=== PATIENT | female | born 1995 ===

== ENCOUNTER 2019-05-28 20:30 | Inpatient (IN) | payer MEDICAID ==
[2019-05-28] MEDS ORDERED: XYLOCAINE 2% INFILTRATI ONE (21:55)
[2019-05-28] MEDS ORDERED: BRETHINE IVP PRN (21:55)
[2019-05-28] MEDS ORDERED: BRETHINE SUB-Q PRN (21:55)
[2019-05-28] MEDS ORDERED: MINERAL OIL PO PRN (21:55)
[2019-05-28] MEDS ORDERED: PITOCin/NS 20 UNIT/1000ML DRIP 20 UNITS/1,000 ML BAG IV SCH (22:00)
[2019-05-28] MEDS ORDERED: LACTATED RINGERS 1,000 ML ONE (22:08)
--- NOTE | 2019-05-28 22:08 | History and Physical Report ---
History of Present Illness Date of examination: 05/28/19 Date of admission: 05/28/2019 Chief complaint: scheduled IOL for IUGR per recommendations of M History of present illness: Menstrual History Regularity: irregular Duration: 5 LMP: 08/15/2018 LMP reliability: definite LMP character: normal test type: urine test Date: 03/03/2019 BC at conception: other Planned ? no EDC Calculations LMP: 05/22/2019 EDC Confirmation: 06/12/2019 Gestational Age: 25 4/7 weeks Past History : 1 Term Births: 0 Premature Births: 0 Living Children: 0 Para: 0 Mult. Births: 0 Prev : 0 Prev. attempt? 0 Aborta: 0 Elect. Ab: 0 Spont. Ab: 0 Ectopics: 0 Past Medical History: obesity - BMI 53 [place] Past Surgical History: negative Past Medical History Anesthesia Complications: negative Anemia: negative Autoimmune Disorder: negative Bleeding Disorder: negative Blood Transfusions: negative Breast Disease: negative Diabetes: negative Heart Disease: negative Hypertension: negative Hepatitis/Liver Disease: negative Kidney Disease/UTI: negative Neurologic/Epilepsy/Migraines: negative Phlebitis/Varicosities: negative Psychiatric: negative Pulmonary Disease/Asthma: negative Thyroid Disease: negative Hospitalizations: negative Surgery (Non-junior systems administrator): negative Abnormal PAP: negative Family Hx: Mother - passed of AIDS, also had HTN, DM, heart conditions, addiction MGM - breast CA heart problems - MGF Social Hx: Single THC use (last used 01/2019) no smoking or ETOH Infection History Hx of STD: none HIV Risk Eval: no Hepatitis B Risk Eval: low risk Personal hx. of genital herpes: no Partner hx. of genital herpes: no Rash, Viral, or Febrile illness since last LMP? no Varicella/Chicken Pox Status: Immunized Infection History Comments: Pt's mother HIV pos - pt has tested negative twice Genetic History Congenital Heart Defect: Mom: no Dad: no Juan Disease: Mom: no Dad: no Thalassemia Mom: no Dad: no Neural Tube Defect Mom: no Dad: no Down's Syndrome Mom: no Dad: no Mina-Sachs Mom: no Dad: no Sickle Cell Disease/Trait Mom: no Dad: no Hemophilia Mom: no Dad: no Muscular Dystrophy Mom: no Dad: no Cystic Fibrosis Mom: no Dad: no Adrian Chorea Mom: no Dad: no Mental Retardation Mom: no Dad: no Fragile X Mom: no Dad: no Other Genetic/Chromosomal Disorder Mom: no Dad: no Child w/other defect Mom: no Dad: no Other: Brother with CP, sister with Neurofibromitosis Enviromental Exposures Xray Exposure: no Medication, drug, or alcohol use since LMP: no Chemical/Other Exposure: no Exposure to Cat Liter: no Hx of Parvovirus (Fifth Disease): no Occupational Exposure to Children: none Active Medications (reviewed today): None Current Allergies (reviewed today): No known allergies Past History Past Medical History: other (see HPI) Past Surgical History: other (see HPI) AREA FORESTER History: other (see HPI) Family/Genetic History: other (see HPI) Social history: other (see HPI) - Obstetrical History Expected Date of Delivery: 05/29/19 Actual Gestation: 40 Week(s) 0 Day(s) : 1 Para: 0 Medications and Allergies Allergies Allergy/AdvReac Type Severity Reaction Status Date / Time No Known Allergies Allergy Verified 05/28/19 21:52 Review of Systems All systems: negative Genitourinary: other (occasional cramping) - Vital Signs Vital signs: Vital Signs Pulse BP 87 114/57 05/28/19 21:38 05/28/19 21:38 Temp Pulse Resp BP Pulse Ox 87 114/57 99 05/28/19 22:02 05/28/19 21:38 05/28/19 22:02 - Physical Exam Breasts: Cardiovascular: Regular rate, Normal S1, Normal S2 Lungs: Positive: Clear to auscultation, Normal air movement Abdomen: Positive: normal appearance, soft, normal bowel sounds. Negative: distention, tenderness Vulva: both: normal Vagina: Positive: normal moisture. Negative: discharge Cervix: Negative: lesion, discharge Uterus: Positive: normal size, normal contour Adnexa: both: normal Anus/Rectum: Positive: normal perianal skin. Negative: rectal mass, hemorrhoids Extremities: Deep Tendon Reflex Grade: Normal +2 - Obstetrical FHR: auscultation normal, category 1 Uterine Contraction Monitor Mode: External Cervical Dilatation: 1 Cervical Effacement Percentage: 50 station: -2 Uterine Contraction Pattern: Absent Uterine Tone Measurement Phase: Resting Results Result Diagrams: 05/28/19 22:30 All other labs normal. Assessment and Plan 23 y.o. IUP at 39w6d presents for admission as scheduled for IOL d/t IUGR per recommendations of MFM. Patient denies any complaints. Routine admission orders with cervidil placed in EMR. GBS +, orders input to begin abs with active labor or pitocin, whichever is first. DWP and family IOL process. Questions encourages and answered. Dr. Diaz aware of pt admission. Pt cousin and cousin's S/O at bedside. Pt reports she is giving infant up for adoption to cousin.
[2019-05-28] MEDS ORDERED: CERVIDIL VG ONE (22:25)
[2019-05-28] MEDS: LACTATED RINGERS 1,000 ML IV SCH (22:30)
[2019-05-28 23:30] LABS: Hematocrit 35.4 % (30.3-42.9); Hemoglobin 11.4 gm/dl (10.1-14.3); Mean Corpuscular HGB Conc 32 % (30-34); Mean Corpuscular Volume 90 fl (79-97); Platelet Count 255 K/mm3 (140-440); Red Blood Count 3.94 M/mm3 (3.65-5.03); Red Cell Distribution Width 15.2 % (13.2-15.2)
[2019-05-29] MEDS ORDERED: SUBLIMAZE IV ONE (06:15)
[2019-05-29] MEDS ORDERED: AMPICILLIN/NS 2 GM/100 ML 2 GM/100 ML BAG IV ONE ×3 (07:00→12:00)
--- NOTE | 2019-05-29 09:40 | Progress Note ---
Assessment and Plan patient c/o pain with ctx, SVE now 80/-1, cephalic. Discussed options with patient , patient agrees with plan of care. AROM - thick mec fluid. IUP placed without difficulty. Plan to start Antibiotics for GBS and pitocin titrated as needed for adequate labor. All questions addressed. - Patient Problems (1) 40 weeks gestation of Current Visit: Yes Status: Acute (2) IUGR (intrauterine growth restriction) Current Visit: Yes Status: Acute Subjective - Subjective Date of service: 05/29/19 Principal diagnosis: IUP @ 40wks, IOL for IUGR Patient reports: movement normal, contractions Objective - Vital Signs Vital Signs: Vital Signs - 12hr 05/28/19 05/28/19 05/28/19 21:38 21:41 21:52 Temperature Pulse Rate 87 88 83 Respiratory Rate Blood Pressure 114/57 Blood Pressure [Left] O2 Sat by Pulse 99 99 Oximetry 05/28/19 05/28/19 05/28/19 21:57 22:02 22:07 Temperature Pulse Rate 85 87 84 Respiratory Rate Blood Pressure Blood Pressure [Left] O2 Sat by Pulse 99 99 100 Oximetry 05/28/19 05/28/19 05/28/19 22:09 22:12 22:17 Temperature Pulse Rate 88 94 H 88 Respiratory Rate Blood Pressure 142/65 Blood Pressure [Left] O2 Sat by Pulse 99 100 Oximetry 05/28/19 05/28/19 05/28/19 22:22 22:27 22:32 Temperature Pulse Rate 89 96 H 88 Respiratory Rate Blood Pressure Blood Pressure [Left] O2 Sat by Pulse 100 99 100 Oximetry 05/28/19 05/28/19 05/28/19 22:37 22:40 22:42 Temperature Pulse Rate 93 H 83 87 Respiratory Rate Blood Pressure 117/59 Blood Pressure [Left] O2 Sat by Pulse 100 99 Oximetry 05/28/19 05/28/19 05/28/19 22:47 22:52 22:57 Temperature Pulse Rate 96 H 96 H 97 H Respiratory Rate Blood Pressure Blood Pressure [Left] O2 Sat by Pulse 99 99 98 Oximetry 05/28/19 05/28/19 05/28/19 23:00 23:16 23:21 Temperature 98.2 F Pulse Rate 98 H 93 H Respiratory 18 Rate Blood Pressure Blood Pressure [Left] O2 Sat by Pulse 99 100 Oximetry 05/28/19 05/28/19 05/28/19 23:26 23:31 23:36 Temperature Pulse Rate 99 H 89 88 Respiratory Rate Blood Pressure Blood Pressure [Left] O2 Sat by Pulse 99 99 99 Oximetry 05/28/19 05/28/19 05/28/19 23:41 23:46 23:51 Temperature Pulse Rate 87 90 87 Respiratory Rate Blood Pressure Blood Pressure [Left] O2 Sat by Pulse 98 98 99 Oximetry 05/28/19 05/29/19 05/29/19 23:56 00:01 00:06 Temperature Pulse Rate 81 92 H 81 Respiratory Rate Blood Pressure 115/55 Blood Pressure [Left] O2 Sat by Pulse 99 99 100 Oximetry 05/29/19 05/29/19 05/29/19 00:11 00:16 00:21 Temperature Pulse Rate 86 92 H 82 Respiratory Rate Blood Pressure Blood Pressure [Left] O2 Sat by Pulse 99 99 100 Oximetry 05/29/19 05/29/19 05/29/19 00:26 00:31 00:36 Temperature Pulse Rate 82 88 81 Respiratory Rate Blood Pressure Blood Pressure [Left] O2 Sat by Pulse 99 98 99 Oximetry 05/29/19 05/29/19 05/29/19 00:41 00:46 00:49 Temperature Pulse Rate 78 78 76 Respiratory Rate Blood Pressure 88/39 Blood Pressure [Left] O2 Sat by Pulse 100 99 Oximetry 05/29/19 05/29/19 05/29/19 00:51 00:56 01:01 Temperature Pulse Rate 80 75 78 Respiratory Rate Blood Pressure Blood Pressure [Left] O2 Sat by Pulse 99 100 98 Oximetry 05/29/19 05/29/19 05/29/19 01:06 01:11 01:16 Temperature Pulse Rate 72 75 95 H Respiratory Rate Blood Pressure Blood Pressure [Left] O2 Sat by Pulse 98 100 100 Oximetry 05/29/19 05/29/19 05/29/19 01:21 01:22 01:26 Temperature Pulse Rate 85 87 94 H Respiratory Rate Blood Pressure 95/53 Blood Pressure [Left] O2 Sat by Pulse 100 100 Oximetry 05/29/19 05/29/19 05/29/19 01:31 01:36 01:41 Temperature Pulse Rate 93 H 85 74 Respiratory Rate Blood Pressure Blood Pressure [Left] O2 Sat by Pulse 100 100 100 Oximetry 05/29/19 05/29/19 05/29/19 01:46 01:50 01:51 Temperature Pulse Rate 87 82 81 Respiratory Rate Blood Pressure 97/51 Blood Pressure [Left] O2 Sat by Pulse 100 100 Oximetry 05/29/19 05/29/19 05/29/19 01:56 02:01 02:06 Temperature Pulse Rate 72 81 84 Respiratory Rate Blood Pressure Blood Pressure [Left] O2 Sat by Pulse 100 100 97 Oximetry 05/29/19 05/29/19 05/29/19 03:10 03:15 03:20 Temperature Pulse Rate 81 73 77 Respiratory Rate Blood Pressure Blood Pressure [Left] O2 Sat by Pulse 99 98 98 Oximetry 05/29/19 05/29/19 05/29/19 03:25 03:30 03:35 Temperature Pulse Rate 72 80 71 Respiratory Rate Blood Pressure Blood Pressure [Left] O2 Sat by Pulse 97 98 98 Oximetry 05/29/19 05/29/19 05/29/19 03:40 03:45 03:50 Temperature Pulse Rate 81 71 70 Respiratory Rate Blood Pressure Blood Pressure [Left] O2 Sat by Pulse 98 99 98 Oximetry 05/29/19 05/29/19 05/29/19 03:55 04:00 04:05 Temperature Pulse Rate 86 72 67 Respiratory Rate Blood Pressure Blood Pressure [Left] O2 Sat by Pulse 99 98 99 Oximetry 05/29/19 05/29/19 05/29/19 04:10 04:15 04:20 Temperature Pulse Rate 69 72 67 Respiratory Rate Blood Pressure Blood Pressure [Left] O2 Sat by Pulse 97 97 98 Oximetry 05/29/19 05/29/19 05/29/19 04:25 04:30 04:35 Temperature Pulse Rate 63 67 70 Respiratory Rate Blood Pressure Blood Pressure [Left] O2 Sat by Pulse 99 99 98 Oximetry 05/29/19 05/29/19 05/29/19 04:40 04:45 04:50 Temperature Pulse Rate 64 93 H 86 Respiratory Rate Blood Pressure Blood Pressure [Left] O2 Sat by Pulse 100 98 98 Oximetry 05/29/19 05/29/19 05/29/19 05:04 05:09 05:11 Temperature Pulse Rate 84 77 69 Respiratory Rate Blood Pressure 112/52 Blood Pressure [Left] O2 Sat by Pulse 99 98 Oximetry 05/29/19 05/29/19 05/29/19 05:14 05:19 05:24 Temperature 98.4 F Pulse Rate 70 71 68 Respiratory 20 Rate Blood Pressure Blood Pressure [Left] O2 Sat by Pulse 100 99 99 Oximetry 05/29/19 05/29/19 05/29/19 05:29 05:34 05:39 Temperature Pulse Rate 77 86 72 Respiratory Rate Blood Pressure Blood Pressure [Left] O2 Sat by Pulse 99 97 99 Oximetry 05/29/19 05/29/19 05/29/19 05:44 05:49 05:54 Temperature Pulse Rate 75 83 68 Respiratory Rate Blood Pressure Blood Pressure [Left] O2 Sat by Pulse 98 100 99 Oximetry 05/29/19 05/29/19 05/29/19 05:59 06:04 06:09 Temperature Pulse Rate 70 77 70 Respiratory Rate Blood Pressure Blood Pressure [Left] O2 Sat by Pulse 99 100 98 Oximetry 05/29/19 05/29/19 07:57 08:02 Temperature Pulse Rate 73 Respiratory 20 Rate Blood Pressure 109/52 Blood Pressure 109/52 [Left] O2 Sat by Pulse Oximetry - Exam Breasts: normal Cardiovascular: Regular rate Lungs: Clear to auscultation, Normal air movement Abdomen: Present: normal appearance, soft Vulva: both: normal Uterus: Present: normal FHR: auscultation normal, category 1 Uterine Contraction Monitor Mode: Internal Cervical Dilatation: 2 (AROM - mec) Cervical Effacement Percentage: 80 station: -1 Uterine Contraction Frequency (min): 1-2 Uterine Contraction Duration: 60 Uterine Contraction Pattern: Regular Uterine Tone Measurement Phase: Contraction Uterine Contraction Intensity: Moderate Extremities: normal Deep Tendon Reflex Grade: Normal +2 - Labs Labs: Laboratory Results - last 24 hr 05/28/19 05/28/19 22:30 22:30 WBC 10.1 RBC 3.94 Hgb 11.4 Hct 35.4 MCV 90 MCH 29 MCHC 32 RDW 15.2 Plt Count 255 Blood Type O POSITIVE Antibody Screen Negative
[2019-05-29] MEDS ORDERED: PITOCin/NS 30 UNIT/500ML 30 UNITS/500 ML BAG IV SCH (10:00)
[2019-05-29] MEDS ORDERED: AMPICILLIN/NS 1 GM/50 ML 1 GM/50 ML BAG IV SCH ×3 (11:00→16:00)
--- NOTE | 2019-05-29 12:15 | Anesthesia Consultation ---
Anesthesia Consult and Med Hx Date of service: 05/29/19 - Airway Anesthetic Teeth Evaluation: Good ROM Head & Neck: Adequate Mental/Hyoid Distance: Adequate Mallampati Class: Class II Intubation Access Assessment: Probably Good - Pulmonary Exam CTA: Yes - Cardiac Exam Cardiac Exam: RRR - Pre-Operative Health Status ASA Pre-Surgery Classification: ASA2 Proposed Anesthetic Plan: Epidural - Pulmonary Hx Smoking: Yes (1/2PK/DAY ) Hx Asthma: Yes Hx Respiratory Symptoms: No SOB: No COPD: No Home Oxygen Therapy: No Hx Pneumonia: No Hx Sleep Apnea: No - Cardiovascular System Hx Hypertension: No Hx Coronary Artery Disease: No Hx Heart Attack/AMI: No Hx Angina: No Hx Percutaneous Transluminal Coronary Angioplasty (PTCA): No Hx Cardia Arrhythmia: No Hx Pacemaker: No Hx Internal Defibrillator: No Hx Valvular Heart Disease: No Hx Heart Murmur: No Hx Peripheral Vascular Disease: No - Central Nervous System Hx Neuromuscular Disorder: No Hx Seizures: No CVA: No Hx Back Pain: No Hx Psychiatric Problems: No - Gastrointestinal Hx Ulcer: No Hx Gastroesophageal Reflux Disease: Yes - Endocrine Hx Renal Disease: No Hx End Stage Renal Disease: No Hx Cirrhosis: No Hx Liver Disease: No Hx Insulin Dependent Diabetes: No Hx Non-Insulin Dependent Diabetes: No Hx Thyroid Disease: No Hx Hypothyroidism: No Hx Hyperthyroidism: No - Hematic Hx Anemia: No Hx Sickle Cell Disease: No - Other Systems Hx Alcohol Use: No Hx Substance Use: No Hx Cancer: No Hx Obesity: Yes (BMI 53)
[2019-05-29] MEDS ORDERED: NARCAN 2 MG/2 ML IV PRN (12:30)
[2019-05-29] MEDS: LACTATED RINGERS 1,000 ML IV SCH ×2 (12:37→13:55)
[2019-05-29] MEDS ORDERED: fentaNYL-BUPIV 2 MCG/ML-0.125% 200 MCG/100 ML BAG EPIDURAL SCH (13:00)
--- NOTE | 2019-05-29 13:18 | Progress Note ---
Assessment and Plan patient comfortable s/p epidural placement. SVE 3.5/80/-2, ISE placed d/t monitoring difficulties due to maternal habitus. head feels asynclitic, rn to help patient reposition after epidural has set as much as possible. Ability to change position in bed limited by pt's habitus. unable to determine adequacy of pelvis at this time. Will continue to monitor and titrate pitocin as needed. - Patient Problems (1) 40 weeks gestation of Current Visit: Yes Status: Acute (2) IUGR (intrauterine growth restriction) Current Visit: Yes Status: Acute Subjective - Subjective Date of service: 05/29/19 Principal diagnosis: IUP @ 40wks, IOL for IUGR, thick mec Patient reports: other (comfortable s/p epidural), no new complaints Objective - Vital Signs Vital Signs: Vital Signs - 12hr 05/29/19 05/29/19 05/29/19 01:16 01:21 01:22 Temperature Pulse Rate 95 H 85 87 Respiratory Rate Blood Pressure 95/53 Blood Pressure [Left] O2 Sat by Pulse 100 100 Oximetry 05/29/19 05/29/19 05/29/19 01:26 01:31 01:36 Temperature Pulse Rate 94 H 93 H 85 Respiratory Rate Blood Pressure Blood Pressure [Left] O2 Sat by Pulse 100 100 100 Oximetry 05/29/19 05/29/19 05/29/19 01:41 01:46 01:50 Temperature Pulse Rate 74 87 82 Respiratory Rate Blood Pressure 97/51 Blood Pressure [Left] O2 Sat by Pulse 100 100 Oximetry 05/29/19 05/29/19 05/29/19 01:51 01:56 02:01 Temperature Pulse Rate 81 72 81 Respiratory Rate Blood Pressure Blood Pressure [Left] O2 Sat by Pulse 100 100 100 Oximetry 05/29/19 05/29/19 05/29/19 02:06 03:10 03:15 Temperature Pulse Rate 84 81 73 Respiratory Rate Blood Pressure Blood Pressure [Left] O2 Sat by Pulse 97 99 98 Oximetry 05/29/19 05/29/19 05/29/19 03:20 03:25 03:30 Temperature Pulse Rate 77 72 80 Respiratory Rate Blood Pressure Blood Pressure [Left] O2 Sat by Pulse 98 97 98 Oximetry 05/29/19 05/29/19 05/29/19 03:35 03:40 03:45 Temperature Pulse Rate 71 81 71 Respiratory Rate Blood Pressure Blood Pressure [Left] O2 Sat by Pulse 98 98 99 Oximetry 05/29/19 05/29/19 05/29/19 03:50 03:55 04:00 Temperature Pulse Rate 70 86 72 Respiratory Rate Blood Pressure Blood Pressure [Left] O2 Sat by Pulse 98 99 98 Oximetry 05/29/19 05/29/19 05/29/19 04:05 04:10 04:15 Temperature Pulse Rate 67 69 72 Respiratory Rate Blood Pressure Blood Pressure [Left] O2 Sat by Pulse 99 97 97 Oximetry 05/29/19 05/29/19 05/29/19 04:20 04:25 04:30 Temperature Pulse Rate 67 63 67 Respiratory Rate Blood Pressure Blood Pressure [Left] O2 Sat by Pulse 98 99 99 Oximetry 05/29/19 05/29/19 05/29/19 04:35 04:40 04:45 Temperature Pulse Rate 70 64 93 H Respiratory Rate Blood Pressure Blood Pressure [Left] O2 Sat by Pulse 98 100 98 Oximetry 05/29/19 05/29/19 05/29/19 04:50 05:04 05:09 Temperature Pulse Rate 86 84 77 Respiratory Rate Blood Pressure Blood Pressure [Left] O2 Sat by Pulse 98 99 98 Oximetry 05/29/19 05/29/19 05/29/19 05:11 05:14 05:19 Temperature 98.4 F Pulse Rate 69 70 71 Respiratory 20 Rate Blood Pressure 112/52 Blood Pressure [Left] O2 Sat by Pulse 100 99 Oximetry 05/29/19 05/29/19 05/29/19 05:24 05:29 05:34 Temperature Pulse Rate 68 77 86 Respiratory Rate Blood Pressure Blood Pressure [Left] O2 Sat by Pulse 99 99 97 Oximetry 05/29/19 05/29/19 05/29/19 05:39 05:44 05:49 Temperature Pulse Rate 72 75 83 Respiratory Rate Blood Pressure Blood Pressure [Left] O2 Sat by Pulse 99 98 100 Oximetry 05/29/19 05/29/19 05/29/19 05:54 05:59 06:04 Temperature Pulse Rate 68 70 77 Respiratory Rate Blood Pressure Blood Pressure [Left] O2 Sat by Pulse 99 99 100 Oximetry 05/29/19 05/29/19 05/29/19 06:09 07:57 08:02 Temperature 98.2 F Pulse Rate 70 73 Respiratory 20 Rate Blood Pressure 109/52 Blood Pressure 109/52 [Left] O2 Sat by Pulse 98 Oximetry 05/29/19 05/29/19 05/29/19 10:28 11:24 11:55 Temperature 97.9 F Pulse Rate 76 88 Respiratory Rate Blood Pressure 118/56 108/57 Blood Pressure [Left] O2 Sat by Pulse Oximetry 05/29/19 05/29/19 05/29/19 12:31 12:34 12:36 Temperature Pulse Rate 85 113 H 98 H Respiratory Rate Blood Pressure 123/73 Blood Pressure [Left] O2 Sat by Pulse 97 99 Oximetry 05/29/19 05/29/19 05/29/19 12:40 12:41 12:46 Temperature Pulse Rate 93 H 98 H 105 H Respiratory Rate Blood Pressure 118/73 Blood Pressure [Left] O2 Sat by Pulse 99 100 Oximetry 05/29/19 05/29/19 05/29/19 12:51 12:54 12:56 Temperature Pulse Rate 102 H 95 H 76 Respiratory Rate Blood Pressure 157/73 Blood Pressure [Left] O2 Sat by Pulse 100 92 100 Oximetry 05/29/19 05/29/19 05/29/19 13:01 13:06 13:09 Temperature Pulse Rate 96 H 98 H 80 Respiratory Rate Blood Pressure 126/64 116/56 120/53 Blood Pressure [Left] O2 Sat by Pulse 98 100 Oximetry 05/29/19 13:12 Temperature Pulse Rate 80 Respiratory Rate Blood Pressure 128/46 Blood Pressure [Left] O2 Sat by Pulse Oximetry - Exam Breasts: normal Cardiovascular: Regular rate Lungs: Clear to auscultation, Normal air movement Abdomen: Present: normal appearance, soft Vulva: both: normal Uterus: Present: normal FHR: category 1 Uterine Contraction Monitor Mode: Internal Cervical Dilatation: 3.5 (ISE placed) Cervical Effacement Percentage: 80 station: -2 Uterine Contraction Frequency (min): 2 Uterine Contraction Duration: 60 Uterine Contraction Pattern: Regular Uterine Tone Measurement Phase: Contraction Uterine Contraction Intensity: Moderate Extremities: normal Deep Tendon Reflex Grade: Normal +2 - Labs Labs: Laboratory Results - last 24 hr 05/28/19 05/28/19 22:30 22:30 WBC 10.1 RBC 3.94 Hgb 11.4 Hct 35.4 MCV 90 MCH 29 MCHC 32 RDW 15.2 Plt Count 255 Blood Type O POSITIVE Antibody Screen Negative
[2019-05-29] MEDS ORDERED: NACL 0.9% 1000 ML 1,000 ML ONE (16:28)
[2019-05-29] MEDS ORDERED: NACL 0.9% 1000 ML 1,000 ML VG SCH (17:00)
[2019-05-29] MEDS ORDERED: BICITRA PO ONE (17:25)
[2019-05-29] MEDS ORDERED: REGLAN IV ONE (17:25)
[2019-05-29] MEDS ORDERED: PEPCID IV ONE (17:25)
--- NOTE | 2019-05-29 17:28 | Progress Note ---
Assessment and Plan No change in SVE, pt now having late decels. Dr. Velasco updated on pt's status. Pre-op orders entered, CN aware. - Patient Problems (1) 40 weeks gestation of Current Visit: Yes Status: Acute (2) IUGR (intrauterine growth restriction) Current Visit: Yes Status: Acute Subjective - Subjective Date of service: 05/29/19 Principal diagnosis: IUP @ 40wks, IOL for IUGR, thick mec Patient reports: other, no new complaints Objective - Vital Signs Vital Signs: Vital Signs - 12hr 05/29/19 05/29/19 05/29/19 05:29 05:34 05:39 Temperature Pulse Rate 77 86 72 Respiratory Rate Blood Pressure Blood Pressure [Left] O2 Sat by Pulse 99 97 99 Oximetry 05/29/19 05/29/19 05/29/19 05:44 05:49 05:54 Temperature Pulse Rate 75 83 68 Respiratory Rate Blood Pressure Blood Pressure [Left] O2 Sat by Pulse 98 100 99 Oximetry 05/29/19 05/29/19 05/29/19 05:59 06:04 06:09 Temperature Pulse Rate 70 77 70 Respiratory Rate Blood Pressure Blood Pressure [Left] O2 Sat by Pulse 99 100 98 Oximetry 05/29/19 05/29/19 05/29/19 07:57 08:02 10:28 Temperature 98.2 F 97.9 F Pulse Rate 73 Respiratory 20 Rate Blood Pressure 109/52 Blood Pressure 109/52 [Left] O2 Sat by Pulse Oximetry 05/29/19 05/29/19 05/29/19 11:24 11:55 12:31 Temperature Pulse Rate 76 88 85 Respiratory Rate Blood Pressure 118/56 108/57 Blood Pressure [Left] O2 Sat by Pulse 97 Oximetry 05/29/19 05/29/19 05/29/19 12:34 12:36 12:40 Temperature Pulse Rate 113 H 98 H 93 H Respiratory Rate Blood Pressure 123/73 118/73 Blood Pressure [Left] O2 Sat by Pulse 99 Oximetry 05/29/19 05/29/19 05/29/19 12:41 12:46 12:51 Temperature Pulse Rate 98 H 105 H 102 H Respiratory Rate Blood Pressure Blood Pressure [Left] O2 Sat by Pulse 99 100 100 Oximetry 05/29/19 05/29/19 05/29/19 12:54 12:56 13:01 Temperature Pulse Rate 95 H 76 96 H Respiratory Rate Blood Pressure 157/73 126/64 Blood Pressure [Left] O2 Sat by Pulse 92 100 98 Oximetry 05/29/19 05/29/19 05/29/19 13:06 13:09 13:12 Temperature Pulse Rate 98 H 80 85 Respiratory Rate Blood Pressure 116/56 120/53 128/46 Blood Pressure [Left] O2 Sat by Pulse 100 99 Oximetry 05/29/19 05/29/19 05/29/19 13:15 13:17 13:18 Temperature Pulse Rate 81 69 76 Respiratory Rate Blood Pressure 109/54 99/53 Blood Pressure [Left] O2 Sat by Pulse 99 Oximetry 05/29/19 05/29/19 05/29/19 13:21 13:22 13:27 Temperature Pulse Rate 76 82 81 Respiratory Rate Blood Pressure 91/52 Blood Pressure [Left] O2 Sat by Pulse 100 100 Oximetry 05/29/19 05/29/19 05/29/19 13:32 13:37 13:42 Temperature Pulse Rate 86 73 74 Respiratory Rate Blood Pressure Blood Pressure [Left] O2 Sat by Pulse 100 99 100 Oximetry 05/29/19 05/29/19 05/29/19 13:47 13:52 13:54 Temperature Pulse Rate 128 H 71 70 Respiratory Rate Blood Pressure 116/72 Blood Pressure [Left] O2 Sat by Pulse 99 100 Oximetry 05/29/19 05/29/19 05/29/19 13:57 14:02 14:07 Temperature Pulse Rate 69 64 75 Respiratory Rate Blood Pressure 116/68 Blood Pressure [Left] O2 Sat by Pulse 100 100 100 Oximetry 05/29/19 05/29/19 05/29/19 14:12 14:17 14:22 Temperature Pulse Rate 72 73 75 Respiratory Rate Blood Pressure Blood Pressure [Left] O2 Sat by Pulse 100 100 100 Oximetry 05/29/19 05/29/19 05/29/19 14:24 14:27 14:32 Temperature Pulse Rate 69 76 68 Respiratory Rate Blood Pressure 111/57 Blood Pressure [Left] O2 Sat by Pulse 100 100 Oximetry 05/29/19 05/29/19 05/29/19 14:37 14:42 14:47 Temperature Pulse Rate 65 66 63 Respiratory Rate Blood Pressure 106/56 Blood Pressure [Left] O2 Sat by Pulse 100 100 100 Oximetry 05/29/19 05/29/19 05/29/19 14:52 14:57 15:02 Temperature Pulse Rate 68 63 68 Respiratory Rate Blood Pressure 105/61 Blood Pressure [Left] O2 Sat by Pulse 100 100 100 Oximetry 05/29/19 05/29/19 05/29/19 15:07 15:08 15:09 Temperature 97.7 F Pulse Rate 60 65 Respiratory Rate Blood Pressure 101/54 Blood Pressure [Left] O2 Sat by Pulse 100 Oximetry 05/29/19 05/29/19 05/29/19 15:12 15:17 15:22 Temperature Pulse Rate 61 65 61 Respiratory Rate Blood Pressure Blood Pressure [Left] O2 Sat by Pulse 100 100 100 Oximetry 05/29/19 05/29/19 05/29/19 15:23 15:27 15:32 Temperature Pulse Rate 68 64 68 Respiratory Rate Blood Pressure 100/55 Blood Pressure [Left] O2 Sat by Pulse 100 100 Oximetry 05/29/19 05/29/19 05/29/19 15:38 15:43 15:48 Temperature Pulse Rate 71 69 68 Respiratory Rate Blood Pressure 99/55 Blood Pressure [Left] O2 Sat by Pulse 100 100 100 Oximetry 05/29/19 05/29/19 05/29/19 15:52 15:53 15:58 Temperature Pulse Rate 66 64 63 Respiratory Rate Blood Pressure 100/57 Blood Pressure [Left] O2 Sat by Pulse 100 100 Oximetry 05/29/19 05/29/19 05/29/19 16:03 16:07 16:08 Temperature Pulse Rate 64 70 67 Respiratory Rate Blood Pressure 97/56 Blood Pressure [Left] O2 Sat by Pulse 100 100 Oximetry 05/29/19 05/29/19 05/29/19 16:13 16:18 16:23 Temperature Pulse Rate 114 H 120 H 88 Respiratory Rate Blood Pressure 103/48 Blood Pressure [Left] O2 Sat by Pulse 100 99 Oximetry 05/29/19 05/29/19 05/29/19 16:38 16:53 17:07 Temperature Pulse Rate 67 66 71 Respiratory Rate Blood Pressure 93/54 96/52 89/52 Blood Pressure [Left] O2 Sat by Pulse Oximetry 05/29/19 17:23 Temperature Pulse Rate 62 Respiratory Rate Blood Pressure 82/42 Blood Pressure [Left] O2 Sat by Pulse Oximetry - Exam Cardiovascular: Regular rate Lungs: Clear to auscultation, Normal air movement Abdomen: Present: normal appearance, soft Vulva: both: normal Uterus: Present: normal FHR: category 2 Uterine Contraction Monitor Mode: Internal Cervical Dilatation: 3.5 Cervical Effacement Percentage: 80 station: -2 Uterine Contraction Frequency (min): 2-3 Uterine Contraction Duration: 60 Uterine Contraction Pattern: Regular Uterine Tone Measurement Phase: Contraction Uterine Contraction Intensity: Moderate Extremities: normal Deep Tendon Reflex Grade: Normal +2 - Labs Labs: Laboratory Results - last 24 hr 05/28/19 05/28/19 05/28/19 22:30 22:30 22:30 WBC 10.1 RBC 3.94 Hgb 11.4 Hct 35.4 MCV 90 MCH 29 MCHC 32 RDW 15.2 Plt Count 255 RPR Nonreactive Blood Type O POSITIVE Antibody Screen Negative
[2019-05-29] MEDS ORDERED: ceFAZolin 3 GM in NACL 0.9% 100 ML IV NR (17:30)
[2019-05-29] MEDS ORDERED: XYLOCAINE 2%/ EPI 1:200,000 INFILTRATI ONE (17:36)
[2019-05-29] MEDS ORDERED: SUBLIMAZE ONE (17:37)
[2019-05-29] MEDS ORDERED: DEXMEDETOMIDINE IV ONE (17:40)
--- NOTE | 2019-05-29 17:46 | Event Note ---
Date: 05/29/19 Minimal cervical change now with late decelerations unresponsive to intrauterine resuscitative measures. Patient and family informed, recommend proceeding with delivery. Risks, benefits, alternative and consequences explained. Questions encouraged and answered, consents reviewed and signed, she voiced understanding and desires to proceed with c/s. adult day care worker aware of late decelerations and need to urgent proceed with delivery. States she's putting patient on the big board and "we need to wait for another RN".
[2019-05-29] MEDS ORDERED: ANCEF/STERILE WATER 2 GM/20 ML 2 GM/20 ML SYRINGE IV ONE ×2 (17:48→17:53)
[2019-05-29] MEDS ORDERED: ZOFRAN IV PRN (17:48)
[2019-05-29] MEDS ORDERED: DILAUDID IV PRN ×2 (17:48)
[2019-05-29] MEDS ORDERED: BENADRYL IV PRN (17:48)
--- NOTE | 2019-05-29 17:49 | Anesthesia Day of Surgery ---
Anesthesia Day of Surgery - Day of Surgery Patient Examined: Yes Patient H&P Reviewed: Yes Patient is NPO: Yes Beta Blockers: No Cardiac Clearance: No Pulmonary Clearance: No Srikanth's Test: N/A
[2019-05-29] MEDS ORDERED: WATER FOR IRRIG STERILE IR ONE (17:57)
[2019-05-29] MEDS ORDERED: NACL 0.9% IR ONE (17:57)
[2019-05-29] MEDS ORDERED: ZOFRAN ONE (17:57)
[2019-05-29] MEDS ORDERED: SODIUM CHLORIDE FLUSH SYRINGE 10 ML IV NR ×2 (18:00→21:29)
[2019-05-29] MEDS ORDERED: PHENYLEPHRINE/NS Syringe 1,000 MCG/10 ML IV ONE (18:26)
--- NOTE | 2019-05-29 19:10 | Post Anesthesia Evaluation ---
- Post Anesthesia Evaluation Patient Participated: Yes Airway Patent: Yes Stable Respiratory Function: Yes Nausea/Vomiting: No Temp > 96.8F: Yes Pain Manageable: Yes Adequeate Hydration: Yes Anesthesia Complications: No Block Receding Appropriately: Yes Patient on Ventilator: No
--- NOTE | 2019-05-29 19:28 | Operative Report ---
Operative Report Operative Report: Date: 05/29/2019 Preoperative diagnosis: 1. Intrauterine at 40 weeks 2. Nonreassuring heart rate tracing; bradycardia 3. IUGR 4. Body mass index 57 Postoperative diagnosis: 1. Intrauterine at 40 weeks 2. Nonreassuring heart rate tracing; bradycardia 3. IUGR 4. Body mass index 57 Procedure: Low uterine transverse incision for delivery Surgeon: Cherri Velasco MD Fire Control Assistant: Minna Moreno CNM Anesthesia: Epidural Anesthesiologist: Dr. Jacobs Estimated blood loss: 700 mL Urine out: 100 mL Findings: Live born male infant. Weight 6 lbs. 7 oz. Apgars 8 at 1 minute and 9 at 5 minutes. Uterus grossly normal, tubes grossly normal, ovaries grossly normal. Procedure: After risk, benefits, complications, consequences and alternatives for this procedure were discussed with patient and consents were reviewed and signed, she was taken to the OR where epidural anesthesia was bolused. She was then placed in the left lateral tilt position, and prepped and draped in the usual sterile fashion. Timeout was performed, and an appropriate level of anesthesia was noted, a Pfannenstiel incision was made and extended to the fascia which was incised and extended in the lateral directions. The overlying fascia was sharply dissected away from the underlying rectus muscles in the superior and inferior directions. The midline was entered bluntly. The vesicouterine fold was incised and with blunt dissection the bladder flap was created. A transverse incision was made in the lower uterine segment and extended in superiolateral direction with finger fractionation. Light meconium-stained fluid was noted. The infant was delivered from asynclitic cephalic ROT position. Mouth and nose were bulb suctioned. Spontaneous cry and excellent tone were noted. Cord was doubly clamped and cut. The was given to /resuscitation team present. The placenta was manually extracted. The uterus was then exteriorized and cleared of any further products of conception or placental tissue. The incision was reapproximated using 0 Vicryl in a running interlocking stitch. Grossly normal uterus, tubes and ovaries were noted. Once hemostasis was noted, the uterus was allowed back into the pelvic cavity. The pelvis was irrigated with warm normal saline. Again hemostasis was noted . Tisseel applied for further hemostasis. Interceed was then placed to prevent adhesions. Then attention was turned to the rectus muscles. The rectus muscles reapproximated using 0 Vicryl in a simple interrupted stitch x 3. Once hemostasis was noted, the fascia was reapproximated using 0 Vicryl running stitch fashion. Hemostasis was noted, the subcuticular adipose tissue was reapproximated using 0 Vicryl simple stitch 3. Once hemostasis was noted skin incision was reapproximated using 4-0 Vicryl on a Nacho needle in a subcuticular manner. Counts were correct 3. Patient tolerated procedure well state recovery room in stable condition.
[2019-05-29] MEDS ORDERED: LANSINOH TP PRN (21:29)
[2019-05-29] MEDS ORDERED: D5LR 1,000 ML IV SCH (21:29)
[2019-05-29] MEDS ORDERED: NARCAN 0.4 MG/1 ML IV PRN (21:29)
[2019-05-29] MEDS ORDERED: PITOCin/NS 20 UNIT/1000ML DRIP 20 UNITS/1,000 ML BAG IV SCH (21:29)
[2019-05-29] MEDS ORDERED: MORPHINE IV PRN ×2 (21:29)
[2019-05-29] MEDS ORDERED: MYLICON PO PRN (21:29)
[2019-05-29] MEDS ORDERED: TUCKS PAD TP PRN (21:29)
[2019-05-29] MEDS ORDERED: TYLENOL PO PRN (21:29)
[2019-05-29] MEDS ORDERED: MILK OF MAGNESIA PO PRN (21:29)
[2019-05-30] MEDS ORDERED: DILAUDID IV PRN ×2 (00:47→00:52)
[2019-05-30] MEDS: ANCEF/NS 1 GM/50 ML 1 GM/50 ML BAG IV SCH ×2 (01:33→11:17)
[2019-05-30] MEDS ORDERED: BOOSTRIX IM ONE (06:00)
[2019-05-30] MEDS: TORADOL IV PRN ×2 (06:07→11:25)
[2019-05-30 07:32] LABS: Hematocrit 30.9 % (30.3-42.9); Hemoglobin 10.5 gm/dl (10.1-14.3)
--- NOTE | 2019-05-30 08:24 | Progress Note ---
Assessment and Plan - Patient Problems (1) delivery delivered Onset Date: ~05/29/19 Current Visit: Yes Status: Acute Plan to address problem: Pt resting Family present in room VSS FF below umb Lochia small Dressing D&I H&H pending Doing well s/p c/s P: Continue pathway Adv diet and activity as tolerated. Encouraged IS and use of abdominal binder. Subjective - Subjective Date of service: 05/30/19 (pt A&O No c/o voiced) Principal diagnosis: Day # 1 s/p section; NRFT remote from delivery Patient reports: appetite normal, voiding normally, pain well controlled, ambulating normally : doing well Objective - Vital Signs Latest vital signs: Vital Signs Temp Pulse Resp BP Pulse Ox 05/30/19 05:20 98.3 F 88 20 97 05/30/19 01:10 98.1 F 78 20 100/39 97 05/29/19 20:15 98.5 F 71 21 101/44 100 05/29/19 20:01 64 20 96/51 100 05/29/19 19:48 75 20 88/36 100 05/29/19 19:31 64 18 99/40 100 05/29/19 19:15 77 12 79/58 89 05/29/19 19:10 54 L 23 105/57 89 05/29/19 19:03 97.9 F 63 15 70/28 99 05/29/19 17:46 71 70/34 05/29/19 17:31 65 83/45 05/29/19 17:23 62 82/42 05/29/19 17:07 71 89/52 05/29/19 16:53 66 96/52 05/29/19 16:38 67 93/54 05/29/19 16:23 88 103/48 05/29/19 16:18 120 H 99 05/29/19 16:13 114 H 100 05/29/19 16:08 67 100 05/29/19 16:07 70 97/56 05/29/19 16:03 64 100 05/29/19 15:58 63 100 05/29/19 15:53 64 100 05/29/19 15:52 66 100/57 05/29/19 15:48 68 100 05/29/19 15:43 69 100 05/29/19 15:38 71 99/55 100 05/29/19 15:32 68 100 05/29/19 15:27 64 100 05/29/19 15:23 68 100/55 05/29/19 15:22 61 100 05/29/19 15:17 65 100 05/29/19 15:12 61 100 05/29/19 15:09 97.7 F 05/29/19 15:08 65 101/54 05/29/19 15:07 60 100 05/29/19 15:02 68 100 05/29/19 14:57 63 100 05/29/19 14:52 68 105/61 100 05/29/19 14:47 63 100 05/29/19 14:42 66 100 05/29/19 14:37 65 106/56 100 05/29/19 14:32 68 100 05/29/19 14:27 76 100 05/29/19 14:24 69 111/57 05/29/19 14:22 75 100 05/29/19 14:17 73 100 05/29/19 14:12 72 100 05/29/19 14:07 75 116/68 100 05/29/19 14:02 64 100 05/29/19 13:57 69 100 05/29/19 13:54 70 116/72 05/29/19 13:52 71 100 05/29/19 13:47 128 H 99 05/29/19 13:42 74 100 05/29/19 13:37 73 99 05/29/19 13:32 86 100 05/29/19 13:27 81 100 05/29/19 13:22 82 100 05/29/19 13:21 76 91/52 05/29/19 13:18 76 99/53 05/29/19 13:17 69 99 05/29/19 13:15 81 109/54 05/29/19 13:12 85 128/46 99 05/29/19 13:09 80 120/53 05/29/19 13:06 98 H 116/56 100 05/29/19 13:01 96 H 126/64 98 05/29/19 12:56 76 100 05/29/19 12:54 95 H 157/73 92 05/29/19 12:51 102 H 100 05/29/19 12:46 105 H 100 05/29/19 12:41 98 H 99 05/29/19 12:40 93 H 118/73 05/29/19 12:36 98 H 99 05/29/19 12:34 113 H 123/73 05/29/19 12:31 85 97 05/29/19 11:55 88 108/57 05/29/19 11:24 76 118/56 05/29/19 10:28 97.9 F Intake and Output 05/29/19 05/30/19 05/30/19 22:59 06:59 14:59 Intake Total 1211.967 Output Total 2300 1800 Balance -1088.033 -1800 Intake: IV 1211.967 PITOCin/NS 30 UNIT/500ML 11.967 30 units In 500 ml @ 4 mls/hr IV TITR СЕРГЕЙ Rx#: [id number] Output: Urine 2300 1800 Indwelling Catheter 1600 1800 Uretheral (Otto) 100 Other: Total, Output Amount 600 1800 Estimated Blood Loss 700 - Exam Breasts: Present: normal Cardiovascular: Present: Regular rate Lungs: Present: Normal air movement Abdomen: Present: normal appearance, soft, normal bowel sounds Vulva: both: normal Uterus: Present: normal, firm, fundal height at umbilicus Extremities: Present: normal Deep Tendon Reflex Grade: Normal +2 Incision: Present: normal, dry, intact, dressed (to be removed)
[2019-05-30] MEDS: IBUPROFEN PO PRN (21:32)
[2019-05-30] MEDS: PERCOCET 5/325 PO PRN (23:58)
[2019-05-31] MEDS: PERCOCET 5/325 PO PRN (05:38)
--- NOTE | 2019-05-31 08:35 | Discharge Summary ---
Providers - Providers Date of Admission: 05/29/19 09:05 Date of discharge: 05/31/19 (pt asking to d/c today if possible) Attending physician: LEANNA LUJAN 05/28/19 22:01 Consult to Case Management [CONS] Routine Services Needed at Discharge: Recoil [place] [employer]inder Notified:: cm notified Additional Physician Instructions: [facility]. Adoptive parent is patients cousin. 05/29/19 21:29 Consult to Student Nurse [CONS] Routine Reason For Exam: Consult to Mental Health [CONS] Routine Reason For Exam: increased risk for PP depression Place consult to:: mental Notified:: yes Phone number called:: [phone] Was contact made?: Yes If yes, spoke with:: intake Time called:: 09:42 Comment:: Fax consult Primary care physician: LEANNA LUJAN Hospitalization Reason for admission: induction of labor Delivery: Procedure: primary low transverse Episiotomy: none Laceration: none Incision: normal, dry, intact Other procedures: none complications: none Discharge diagnosis: IUP at term delivered [place] baby: male (adoptive parents will bring NB to [facility] for circumcision) Hospital course: uncomplicated section Pt resting No c/o voiced Pt states she is passing gas. VSS FF below umb Lochia scant Incision D&I Stable H&H Doing well s/p c/s P: d/c today with instructions RTO 1 week postop visit. Condition at discharge: Good Disposition: DC-01 TO HOME OR SELFCARE - Discharge Diagnoses (1) delivery delivered Status: Acute Comment: RTO 1 week postop care Plan - Discharge Medications Prescriptions: Lidocain2.5%/Prilocai2.5% [Emla] 5 gm TP ONCE #1 tube Ibuprofen [Motrin 800 MG tab] 800 mg PO TID PRN #30 tablet PRN Reason: Pain oxyCODONE /ACETAMINOPHEN [Percocet 5/325 mg] 1 - 2 tab PO Q4HR PRN #20 tablet PRN Reason: Pain - Provider Discharge Summary Activity: routine, no sex for 6 weeks, no heavy lifting 4 weeks, no strenuous exercise Diet: routine Instructions: routine Additional instructions: [] Smoking cessation referral if applicable(refer to patient education folder for contact #) [] Refer to [facility] Booklet Call your doctor immediately for: * Fever > 100.5 * Heavy vaginal bleeding ( >1 pad per hour) * Severe persistent headache * Shortness of breath * Reddened, hot, painful area to leg or breast * Drainage or odor from incision. * Keep incision clean and dry at all times and follow doctor's instructions regarding bathing/showering - Follow up plan Follow up: LEANNA LUJAN MD [Primary Care Provider] - 7 Days (Call [phone] to schedule your postoperative visit and the circumcision in 1 week. Bring the EMLA cream with you to his visit Do NOT use at home. Take medications as prescribed. Call with concerns. )
[2019-05-31] MEDS: IBUPROFEN PO PRN (10:27)
--- NOTE | 2019-05-31 10:56 | Consultation ---
History of Present Illness - Reason for Consult Consult date: 05/31/19 Reason for consult: Mental Health Evaluation Requesting physician: EFRAIN URRUTIA - Chief Complaint Chief complaint: 'I am fine" - History of Present Psychiatric Illness 23 y.o. IUP at 39w6d presents for admission as scheduled for IOL d/t IUGR. Psychiatry was consulted to see the patient to rule out possible PPD. Today the patient was calm and cooperative during the assessment. She stated that she put her up for adoption. She stated that the new parents are family members (cousins). She stated that she feel like she made the right decision (adoption). She stated that she will be able to be part of the child's life since the parents are family members. She stated that she has a hx of depression with suicide attempts in the past. She stated that she was a patient at a mental health facility iin the local area when hospitalized. She stated that she prefer therapy with her family being involved as treatment for her depression. She is adamant that she isn't depressed at this time. She denies SI/HI's and AVH's. She denies erratic sleep and a poor appetite. She denies a hx of recreational drug use and alcohol consumption (etoh). Medications and Allergies Allergies Allergy/AdvReac Type Severity Reaction Status Date / Time No Known Allergies Allergy Verified 05/28/19 21:52 Home Medications Medication Instructions Recorded Confirmed Last Taken Type Ibuprofen [Motrin 800 MG tab] 800 mg PO TID PRN #30 tablet 05/29/19 Unknown Rx Lidocain2.5%/Prilocai2.5% [Emla] 5 gm TP ONCE #1 tube 05/29/19 Unknown Rx oxyCODONE /ACETAMINOPHEN [Percocet 1 - 2 tab PO Q4HR PRN #20 tablet 05/29/19 Unknown Rx 5/325 mg] Active Meds: Active Medications Acetaminophen (Tylenol) 650 mg PO Q6H PRN PRN Reason: Fever >100.5/QUARLES Hydromorphone HCl (Dilaudid) 0.5 mg IV Q30MIN PRN PRN Reason: Pain , Severe (7-10) Last Admin: 05/30/19 01:04 Dose: 0.5 mg Documented by: Dextrose/Lactated Ringer's ([email or web address]) 1,000 mls @ 125 mls/hr IV DIRECT СЕРГЕЙ Last Admin: 05/30/19 00:48 Dose: 125 mls/hr Documented by: Oxytocin/Sodium Chloride (Pitocin/Ns 20 Unit/1000ml Drip) 20 units in 1,000 mls @ 250 mls/hr IV DIRECT СЕРГЕЙ Ibuprofen (Ibuprofen) 800 mg PO Q6H PRN PRN Reason: Pain, Mild (1-3) Last Admin: 05/31/19 10:27 Dose: 800 mg Documented by: Ketorolac Tromethamine (Toradol) 30 mg IV Q6H PRN PRN Reason: Pain, Moderate (4-6) Stop: 06/03/19 21:28 Last Admin: 05/30/19 11:25 Dose: 30 mg Documented by: Magnesium Hydroxide (Milk Of Magnesia) 30 ml PO QHS PRN PRN Reason: Constip Unrelieved By Senna Last Admin: 05/30/19 06:07 Dose: 30 ml Documented by: Morphine Sulfate (Morphine) 2 mg IV Q4H PRN PRN Reason: Pain, Moderate (4-6) Last Admin: 05/29/19 23:09 Dose: 2 mg Documented by: Morphine Sulfate (Morphine) 4 mg IV Q4H PRN PRN Reason: Pain , Severe (7-10) Multi-Ingredient Ointment (Lansinoh) 1 applic TP PRN PRN PRN Reason: dryness/cracking Naloxone HCl (Narcan 0.4 Mg/1 Ml) 0.1 mg IV Q2MIN PRN PRN Reason: Res Rate </= 8 or 02 SAT < 92% Oxycodone/Acetaminophen (Percocet 5/325) 1 tab PO Q4H PRN PRN Reason: Pain, Moderate (4-6) Last Admin: 05/31/19 05:38 Dose: 1 tab Documented by: Simethicone (Mylicon) 80 mg PO Q6H PRN PRN Reason: Gas pain Witch [place]/Glycerin (Tucks Pad) 1 each TP PRN PRN PRN Reason: Hemorrhoids/cleansing/soothing Past psychiatric history - Past Medical History Past Medical History: other (Preg x 1) Past Surgical History: No surgical history - past Psychiatric treatment and history psychiatric treatment history: Hx of Depression and inpatient psy services in the past. Denies a fam psy hx. - Social History Social history: lives with family Mental Status Exam - Vital signs Last Vital Signs Temp 97.9 F 05/31/19 08:47 Pulse 95 H 05/31/19 08:47 Resp 20 05/31/19 08:47 BP 115/73 05/31/19 08:47 Pulse Ox 97 05/31/19 08:47 - Exam Narrative exam: MSE: Appearance: calm, cooperative Behavior: regular eye contact Speech: regular rate and tone Mood: "okay" Affect: congruent to mood Thought Process: linear Thought Content: denies SI/HI's and AVH's Motor Activity: sitting up in bed Cognition: A/O x3 Insight: appropriate Judgment: appropriate Results Result Diagrams: 05/30/19 07:17 All other labs normal. Assessment and Plan Assessment and plan: Impression: Hx of Depression. Depression ruled out. Today the patient was calm and cooperative during the assessment. The patient is no threat to self. Recommendation/Plan: The patient declined a outpatient referral. She stated that she prefer therapy with her family being involved. Discussed generalized coping skills with the patient, she verbalized understanding. Will staff with Dr Ronit Lange.
[2019-05-31 15:03] VITALS: BP 133/75
== END 2019-05-31 15:00 | disposition home or self-care (01) | DRG 765 ==
LOC: TRG 20:30 → LD 21:17 → TRG 05-29 09:03 → LD 05-29 09:05 → OB 05-29 21:13
PROVIDERS: ADMIT Obstetrics & Gynecology; ATTEND Obstetrics & Gynecology
PROC: 10907ZC Drainage of Amniotic Fluid, Therapeutic from Products of Conception, Via Natural or Artificial Opening (ICD-10-PCS; principal; 2019-05-29)
PROC: 10D00Z1 Extraction of Products of Conception, Low, Open Approach (ICD-10-PCS; 2019-05-29)
PROC: 10H07YZ Insertion of Other Device into Products of Conception, Via Natural or Artificial Opening (ICD-10-PCS; 2019-05-29)
PROC: 3E0234Z Introduction of Serum, Toxoid and Vaccine into Muscle, Percutaneous Approach (ICD-10-PCS; 2019-05-30)
DX: O99.824 Streptococcus B carrier state complicating childbirth (principal); O36.5930 Maternal care for other known or suspected poor fetal growth, third trimester, not applicable or unspecified; Z37.0 Single live birth; Z3A.40 40 weeks gestation of pregnancy; Z23 Encounter for immunization; F17.210 Nicotine dependence, cigarettes, uncomplicated; J45.909 Unspecified asthma, uncomplicated; K21.9 Gastro-esophageal reflux disease without esophagitis; O77.0 Labor and delivery complicated by meconium in amniotic fluid; O76 Abnormality in fetal heart rate and rhythm complicating labor and delivery; F32.9 Major depressive disorder, single episode, unspecified; O99.214 Obesity complicating childbirth; O99.62 Diseases of the digestive system complicating childbirth; O99.52 Diseases of the respiratory system complicating childbirth; O99.344 Other mental disorders complicating childbirth; O99.334 Smoking (tobacco) complicating childbirth; Z84.89 Family history of other specified conditions; Z80.3 Family history of malignant neoplasm of breast; Z83.3 Family history of diabetes mellitus; Z82.49 Family history of ischemic heart disease and other diseases of the circulatory system
CPT/HCPCS: 36415; 85014; 85018; 85027; 86592; 86850; 86900; 86901; 88307; G0378; C1765; C9250; J0290; J0690; J1170; J1885; J2270; J2370; J2405; J2590; J2765; J3010; J3490; J7030; J7120; J7121